=== PATIENT | female | born 1960 | race Caucasian/White ===

== ENCOUNTER 2020-03-31 02:11 | Emergency (ER) | payer OTHER, SELFPAY ==
[2020-03-31 02:15] VITALS: BP 146/93; PULSE 91; RESP 14; TEMP 36.6; O2SAT 97
[2020-03-31 03:02] VITALS: BP 140/94; PULSE 87; RESP 18; O2SAT 95
--- NOTE | 2020-03-31 04:04 | ED.GENADULT ---
HPI - General Adult General Chief complaint: Unspecified Stated complaint: bleeding from umbilicus Time Seen by Provider: 03/31/20 03:50 History of Present Illness HPI narrative: Earlier today she was cleaning aroud her umbilicus with a q-tip and she noted some red/brown drainage. She note that there was some pain when she expressed the drainage. There was only a small amount and it has since stopped. No fever, chills, abdominal pain, redness. Related Data Home Medications Medication Instructions Recorded Confirmed paroxetine HCl 30 mg tablet 30 mg PO DAILY 07/17/19 trazodone 100 mg tablet 100 mg PO .at bedtime tablet 07/17/19 famotidine 20 mg tablet 20 mg PO BID tablet 07/23/19 fexofenadine 180 mg tablet 180 mg PO DAILY 11/17/19 levocetirizine 5 mg tablet 5 mg PO DAILY 01/21/20 nystatin 100,000 unit/gram topical 1 applic TOPICAL BID 01/21/20 ointment Allergies Allergy/AdvReac Type Severity Reaction Status Date / Time hydromorphone Allergy Severe ANAPHYLATIC Verified 03/31/20 02:18 REACTION erythromycin base Allergy Mild Unknown Verified 03/31/20 02:18 wheat Allergy Unknown Verified 03/31/20 02:18 venlafaxine AdvReac Mild Unknown Verified 03/31/20 02:18 Chocolate Allergy Mild Unknown Uncoded 03/31/20 02:18 Review of Systems Review of Systems: All systems reviewed & are unremarkable except as noted in HPI and below Constitutional: Constitutional: Denies fever(s) Cardiovascular: Cardiovascular: Denies chest pain Respiratory: Respiratory: Denies dyspnea Gastrointestinal: Gastrointestinal: Denies abdominal pain and Denies nausea Integumentary/Breasts: Skin/Breast: Denies rash Neurologic: Denies numbness and Denies weakness PMFSH Past Medical History Medical History Rectal prolapse Vaginal irritation Surgical History Surgical History Hx of cholecystectomy Family History Family History Father Hypertension Family history of osteoarthritis Family history of alcoholism Cerebrovascular accident Family history of chronic obstructive pulmonary disease, Onset Age: 66 Patient's father is Mother Hypertension Patient's mother is Family history of coronary artery disease Cerebrovascular accident Sibling Patient's sister is in good health Family history of diabetes mellitus in first degree relative Social History Social History Smoking status: Never smoker Alcohol intake: current Exam Const: General: no acute distress and alert Orientation/consciousness: patient oriented x3 HENMT: Head: normal to inspection Resp: Effort & Inspection: normal respiratory effort Auscultation: clear to auscultation bilaterally Cardio: Rate: regular rate Rhythm: regular rhythm GI: Inspection: non-distended GI Palp: Yes Soft to palpation and Yes Tenderness to palpation present (GI) (focal tenderness at the umbilicus. ) Other: No active drainage. Minimal erythema in umbilicus. Skin: General skin exam: normal color Wounds: no wounds Neuro: General: patient oriented x3 Speech: normal speech Course Vital Signs Vital signs: Vital Signs Temperature 36.6 C 03/31/20 02:15 Pulse Rate 91 03/31/20 02:15 Respiratory Rate 14 03/31/20 02:15 Blood Pressure 146/93 H 03/31/20 02:15 Pulse Oximetry 97 03/31/20 02:15 Temperature 36.6 C 03/31/20 02:15 Pulse Rate 100 03/31/20 04:08 Respiratory Rate 16 03/31/20 04:08 Blood Pressure 138/90 03/31/20 04:08 Pulse Oximetry 100 03/31/20 04:08 Medical Decision Making MDM Narrative Medical decision making narrative: It seems that she had a very small umbilical abscess, which has drained. She has no significant abdominal tenderness or ppalpable mass to light
[2020-03-31 04:08] VITALS: BP 138/90; PULSE 100; RESP 16; O2SAT 100
== END 2020-03-31 04:19 | disposition home or self-care (01) ==
PROVIDERS: Emergency Provider Emergency Medicine; PCP Internal Medicine
DX: L02.216 Cutaneous abscess of umbilicus (principal)
CPT/HCPCS: 99283; A9270

== ENCOUNTER 2022-04-11 00:20 | Day surgery (SDC) | payer OTHER, SELFPAY ==
--- NOTE | 2022-04-06 09:18 | PC.NURSE ---
04/06/2022 Multiple calls made to patient over the course of 2 weeks attempting to pre-procedure interview. Calls made to patients friend, Delon, as well. Patient has called back once after hours and left message saying that she is not sure she wants to do procedure. She is still thinking about it and procrastinating on decision. Further calls to her have gone unanswered.
[2022-04-06 15:07] VITALS: BMI 31.0
[2022-04-11 08:51] VITALS: BP 127/90; PULSE 71; RESP 20; TEMP 36.2; O2SAT 95
[2022-04-11] MEDS: LACTATED RINGERS 1,000 ML 150 ML IV CONT (09:03)
--- NOTE | 2022-04-11 09:08 | WPDANESEPPF ---
Anes - Initial Pre Proc Eval Procedure: Operation Date: 04/11/22 10:15 Proposed Procedures p Colonoscopy - Robert Maradiaga MD Date/Time: 04/11/22 09:08 Surgeon: Robert Maradiaga MD Pre Op Diagnosis: rectal bleeding Patient Data Age: 61 Gender: F Height: 1.6 m Weight: 76.5 kg Last Vital Signs Temp 97.1 F L 04/11/22 08:51 Pulse 71 04/11/22 08:51 Resp 20 04/11/22 08:51 BP 127/90 04/11/22 08:51 Pulse Ox 95 04/11/22 08:51 O2 Del Method Room Air 04/11/22 08:51 Allergies Allergy/AdvReac Type Severity Reaction Status Date / Time hydromorphone Allergy Severe ANAPHYLATIC Verified 04/11/22 08:48 REACTION erythromycin base Allergy Mild pt does Verified 04/11/22 08:48 not remember wheat Allergy Mild Rash Verified 04/11/22 08:48 venlafaxine AdvReac Mild upset Verified 04/11/22 08:48 stomach Chocolate Allergy Mild Diarrhea Uncoded 04/11/22 08:48 Home Medications Medication Instructions Recorded Confirmed Type trazodone 100 mg tablet 100 mg PO .at bedtime 07/17/19 04/06/22 History levocetirizine 5 mg tablet (Xyzal) 5 mg PO DAILY 01/21/20 04/06/22 History Bacillus coagulans 10 billion cell 1 cell PO DAILY 05/16/21 04/06/22 History capsule,delayed release (Probiotic (B. coagulans)) famotidine 20 mg tablet (Acid 20 mg PO DAILY 05/16/21 04/06/22 History Controller) cholecalciferol (vitamin D3) 50 50 mcg PO DAILY #90 tabs 12/14/21 04/06/22 Rx mcg (2,000 unit) tablet paroxetine HCl 30 mg tablet 30 mg PO BID 12/14/21 04/06/22 History fenofibrate micronized 134 mg See Rx Instructions .Route 02/26/22 04/06/22 Rx capsule .COMPLEX #90 caps levothyroxine 88 mcg tablet 88 mcg PO DAILY #90 tabs 02/26/22 04/06/22 Rx Patient hx anesthesia problems: none Family hx anesthesia problems: none Results Review: All pre-operative results and documents have been reviewed as part of the pre-operative evaluation. [facility] Past Medical History Medical History Rectal prolapse Vaginal irritation Surgical History Surgical History Hx of cholecystectomy Family History Family History Father Hypertension Family history of osteoarthritis Family history of alcoholism Cerebrovascular accident Family history of chronic obstructive pulmonary disease, Onset Age: 66 Patient's father is Mother Hypertension Patient's mother is Family history of coronary artery disease Cerebrovascular accident Sibling Patient's sister is in good health Family history of diabetes mellitus in first degree relative Social History Social History Smoking status: Never smoker Second hand tobacco smoke exposure: No Alcohol intake: never Substance use: never Substance use type: does not use Living arrangements: alone Spiritual care concerns: No Anes - Eval Final PreProcedure Day of Procedure 04/11/22 09:08 Patient weight: overweight Heart: regular rate and rhythm Lungs: clear to auscultation Airway: Mallampati scale class II Neurological: alert and oriented Last oral intake: >/= 8 hours ASA classification: II Emergent: no Anesthetic plan: proceed Anesthesia type and monitoring: general GIVS and standard monitoring Results Review: All pre-operative results and documents have been reviewed as part of the pre-operative evaluation. Informed Consent: The patient's anesthetic plan and its attendant risks and benefits were discussed with the patient/family/POA. Questions were solicited and answers provided to the satisfaction of the patient/family/POA.
--- NOTE | 2022-04-11 09:28 | PM.HPGS ---
History of Present Illness History of Present Illness Consent: Risks, benefits, and alternatives have been discussed and questions answered. Patient agrees to proceed with procedure. Chief complaint: rectal bleeding Narrative: Sanaz Dye is a 61 year old female here for first screening colonoscopy Review of Systems Constitutional: Constitutional: Denies headache(s) and Denies weakness Eyes: Eyes: Denies blurry vision ENT: Reports Normal hearing present, Denies headache(s) and Denies neck pain Cardiovascular: Cardiovascular: Denies chest pain and Denies dyspnea Respiratory: Respiratory: Denies dyspnea Gastrointestinal: Gastrointestinal: Reports no additional gastrointestinal complaints Genitourinary: Genitourinary: Denies dysuria Musculoskeletal: Musculoskeletal: Denies neck pain Integumentary/Breasts: Skin/Breast: Denies dry skin Neurologic: Reports Normal hearing present, Denies headache(s) and Denies weakness Psychiatric: Psychiatric: Denies anxiety Endocrine: Endocrine: Denies change in body appearance Hematologic/Lymphatic: Hematologic/Lymphatic: Denies easy bleeding Allergic/Immunologic: Allergic/Immunologic: Denies urticaria PMFSH Past Medical History Medical History Rectal prolapse Vaginal irritation Surgical History Surgical History Hx of cholecystectomy Family History Family History Father Hypertension Family history of osteoarthritis Family history of alcoholism Cerebrovascular accident Family history of chronic obstructive pulmonary disease, Onset Age: 66 Patient's father is Mother Hypertension Patient's mother is Family history of coronary artery disease Cerebrovascular accident Sibling Patient's sister is in good health Family history of diabetes mellitus in first degree relative Social History Social History Smoking status: Never smoker Second hand tobacco smoke exposure: No Alcohol intake: never Substance use: never Substance use type: does not use Living arrangements: alone Spiritual care concerns: No Meds Home Medications and Allergies Home Medications Medication Instructions Recorded Confirmed Type trazodone 100 mg tablet 100 mg PO .at bedtime 07/17/19 04/06/22 History levocetirizine 5 mg tablet (Xyzal) 5 mg PO DAILY 01/21/20 04/06/22 History Bacillus coagulans 10 billion cell 1 cell PO DAILY 05/16/21 04/06/22 History capsule,delayed release (Probiotic (B. coagulans)) famotidine 20 mg tablet (Acid 20 mg PO DAILY 05/16/21 04/06/22 History Controller) cholecalciferol (vitamin D3) 50 50 mcg PO DAILY #90 tabs 12/14/21 04/06/22 Rx mcg (2,000 unit) tablet paroxetine HCl 30 mg tablet 30 mg PO BID 12/14/21 04/06/22 History fenofibrate micronized 134 mg See Rx Instructions .Route 02/26/22 04/06/22 Rx capsule .COMPLEX #90 caps levothyroxine 88 mcg tablet 88 mcg PO DAILY #90 tabs 02/26/22 04/06/22 Rx Allergies Allergy/AdvReac Type Severity Reaction Status Date / Time hydromorphone Allergy Severe ANAPHYLATIC Verified 04/11/22 08:48 REACTION erythromycin base Allergy Mild pt does Verified 04/11/22 08:48 not remember wheat Allergy Mild Rash Verified 04/11/22 08:48 venlafaxine AdvReac Mild upset Verified 04/11/22 08:48 stomach Chocolate Allergy Mild Diarrhea Uncoded 04/11/22 08:48 Vital Signs Vital Signs - 24 hr 04/11/22 08:51 Temperature 97.1 F L Pulse Rate 71 Respiratory Rate 20 Blood Pressure 127/90 Pulse Oximetry 95 Oxygen Delivery Room Air Exam Const: General: comfortable and no acute distress HENMT: General nose exam: Normal nares present Eyes: General: appearance normal, both eyes and all related structures Neck
[2022-04-11 09:53] VITALS: BP 105/70; PULSE 59; RESP 15; O2SAT 95
[2022-04-11 10:03] VITALS: BP 110/67; PULSE 60; RESP 15; O2SAT 96
[2022-04-11 10:13] VITALS: BP 125/83; PULSE 54; RESP 17; O2SAT 97
== END 2022-04-11 10:32 | disposition home or self-care (01) ==
PROVIDERS: PCP Internal Medicine; Visit Provider Internal Medicine Gastroenterology
PROC: 0DJD8ZZ Inspection of Lower Intestinal Tract, Via Natural or Artificial Opening Endoscopic (ICD-10-PCS; CPT 45378; principal; 2022-04-11 10:15)
DX: Z12.11 Encounter for screening for malignant neoplasm of colon (principal); D12.5 Benign neoplasm of sigmoid colon; D12.3 Benign neoplasm of transverse colon; K64.8 Other hemorrhoids; Z98.0 Intestinal bypass and anastomosis status
CPT/HCPCS: 45385; 88305; J2704; J7120